=== PATIENT | male | born 1995 | race Caucasian/White ===

== ENCOUNTER → 2016-12-03 | Outpatient (CLI) | payer BC ==
[~2016-12-03] MED LIST: FLUO10CA48 PO
--- NOTE | 2016-12-03 13:22 | Discharge Instructions ---
Discharge Instructions Procedure Procedure Date: Dec 03, 2016. Reason for visit: Lymphadenopathy. Discharge Discharge Date: Dec 03, 2016. Discharge Diagnosis: s/p right cervical lymph node FNA Instructions Activity Recommendations: No limitations Return to School/Work: no limitations Recommended Home Diet: No Limitations Provider Instructions: ACTIVITY RECOMMENDATIONS: * Rest today. * Resume regular activity in one day. MEDICATIONS: * May take Tylenol or Ibuprofen as needed for pain. DIET: * Resume previous diet. SPECIAL CARE INSTRUCTIONS: Call your doctor if: * Temperature above 101 degrees F. * Pain not relieved by pain medicine ordered. * Increased drainage or redness from incision. * Notify your doctor with any questions or concerns. Call your doctor or go to the nearest Emergency Department if you experience: * Increased chest pain or shortness of breath. FOLLOW UP VISIT: Follow-up with Referring Physician as scheduled. Allergies Coded Allergies: No Known Allergies (Unverified , 05/19/16) Murray Weller Recommendations: Call your doctor if: * Temperature above 101 degrees * Pain not relieved by pain medicine ordered * There is increased drainage or redness from any incision * You have any unanswered questions or concerns. Your Doctors Instructions noted above were prepared by provider Angel Darling. Patient Signature Section: Patient Instructions Signature Page Devonte Gonzalez Patient (or Guardian) Signature/Date: I have read and understand the instructions given to me by my caregivers. Caregiver/RN/Doctor Signature/Date: The above-named patient and/or guardian has received patient instructions on this date. + Original Patient Signature Page (only) stays with chart. Please make copy for patient.
--- NOTE | 2016-12-03 13:45 | DIAGNOSTIC IMAGING REPORT ---
ULTRASOUND GUIDED FINE NEEDLE ASPIRATION OF RIGHT LEVEL 2 CERVICAL LYMPH NODE CLINICAL HISTORY: Lymphadenopathy. COMPARISON STUDY: Ultrasound November 21, 2016. PROCEDURE: Sonography of the right neck demonstrated the enlarged right level 2 lymph node. This node was targeted for fine needle aspiration. The procedure, risks and benefits were discussed with the patient. The patient agreed to the procedure and informed written consent was obtained. The procedure was performed by Dr. Darling following a timeout. Skin of the right neck was prepped and draped in sterile fashion and local anesthesia was achieved with 1% lidocaine. Under direct ultrasound guidance, 3 25-gauge fine needle aspirations were performed. The samples were deemed preliminarily adequate by pathology. The patient tolerated the procedure well and no immediate complications were evident. IMPRESSION: Ultrasound guided fine aspiration of the enlarged right level 2 cervical lymph node. Electronically signed by: Angel Darling M.D. 12/03/2016 1:43 PM Dictated Date/Time: 12/03/2016 1:42 PM
== END | disposition home or self-care (01) ==
LOC: C.ULTR 12:17
PROVIDERS: ATTEND Family Medicine
DX: R59.0 Localized enlarged lymph nodes (principal)